=== PATIENT | female | born 1985 | race Hispanic/Latino ===

== ENCOUNTER 2021-09-04 08:41 | Outpatient (CLI) | payer BC ==
[2021-09-04 09:38] LABS: Hemoglobin 12.4 g/dL (12.0-15.5); Mean Corpuscular HGB CONC 31.9 g/dL (32.0-36.0); Mean Corpuscular Hemoglobin 31.5 pg (27.0-33.0); Mean Corpuscular Volume 98.7 fl (81.6-98.3); Mean Platelet Volume 10.3 fl (7.4-10.4); Platelet Count 215 10x3/uL (150-450); RBC Distribution Width 12.8 % (11.5-14.5); Red Blood Cell (RBC) Count 3.94 10x6/uL (3.90-5.03); White Blood Cell (WBC) Count 4.2 10x3/uL (3.5-10.5)
[2021-09-04 09:57] LABS: PTT 27.9 sec (22.0-33.0); Prothrombin Time 10.8 sec (9.5-12.1)
[2021-09-04 10:01] LABS: Anion Gap 10 mmol/L (10-20); BUN (Urea Nitrogen) 12 mg/dL (7.0-18.7); Calc. Creatinine Clearance 0 mL/min (70-130); Calcium 10.3 mg/dL (7.8-10.44); Carbon Dioxide 30 mmol/L (22-29); Chloride 105 mmol/L (98-107); Estimated GFR 95; Glucose 77 mg/dL (70-105); Potassium 4.8 mmol/L (3.5-5.1); Sodium 140 mmol/L (136-145)
== END 2021-09-04 08:42 | disposition home or self-care (01) ==
LOC: LABBT 08:41
PROVIDERS: ATTEND Surgery
DX: Z01.818 Encounter for other preprocedural examination (principal); M51.16 Intervertebral disc disorders with radiculopathy, lumbar region; Z20.822 Contact with and (suspected) exposure to COVID-19
CPT/HCPCS: 80048; 85027; 85610; 85730; 87811; 93005; 93010

== ENCOUNTER 2021-09-09 05:27 | Observation (INO) | payer BC ==
[2021-09-09] MEDS ORDERED: HYDROmorphone 2 MG/ML VIAL ONE (06:21)
[2021-09-09] MEDS ORDERED: fentaNYL Citrate/PF 100 MCG/2 ML SYRINGE ONE (06:21)
[2021-09-09] MEDS ORDERED: Thrombin 5000 UNITS/5 ML VIAL ONE (06:36)
[2021-09-09] MEDS ORDERED: CEFAZOLIN 2 GM VIAL ONE (07:19)
[2021-09-09] MEDS ORDERED: Sodium Chloride 0.9% 100 ML ONE (07:19)
[2021-09-09] MEDS ORDERED: Midazolam HCl 2 mg/2 ml Vial ONE (07:23)
[2021-09-09] MEDS ORDERED: Phenylephrine 10 MG/ML VIAL ONE (07:37)
[2021-09-09] MEDS ORDERED: Dexamethasone 20 MG/5 ML VIAL ONE (07:37)
[2021-09-09] MEDS ORDERED: ePHEDrine 50 MG/ML VIAL ONE (07:37)
[2021-09-09] MEDS ORDERED: Metoclopramide HCl 10 MG/2 ML VIAL ONE (07:37)
[2021-09-09] MEDS ORDERED: Glycopyrrolate 0.2 MG/ML 5 ML SYRINGE ONE (07:37)
[2021-09-09] MEDS ORDERED: Rocuronium Bromide 10 MG/ML (10ML VIAL) ONE (07:37)
[2021-09-09] MEDS ORDERED: PROPOFOL 200 MG/20 ML VIAL ONE (07:37)
[2021-09-09] MEDS ORDERED: Lidocaine 1% PF 5 ML VIAL ONE (07:37)
[2021-09-09] MEDS ORDERED: Ondansetron PF 4 MG/2 ML Vial ONE (07:37)
[2021-09-09] MEDS ORDERED: SUGAMMADEX SODIUM 200 MG/2 ML VIAL ONE (09:07)
[2021-09-09] MEDS ORDERED: traMADol HCl 50 MG TAB PO PRN (09:08)
[2021-09-09] MEDS ORDERED: Morphine 2 MG/ML VIAL SLOW IVP PRN (09:08)
[2021-09-09] MEDS ORDERED: Acetaminophen 325 MG TAB PO PRN (09:08)
[2021-09-09] MEDS ORDERED: HYDROcodone/Acetaminophen 7.5/325 mg Tablet PO PRN (09:08)
[2021-09-09] MEDS ORDERED: Acetaminophen/Codeine 30-300mg Tablet PO PRN (09:08)
[2021-09-09] MEDS ORDERED: ceFAZolin 2 GM/Dextrose 50 ML 2 GM in Premix Bag 1 BAG IVPB SCH (09:15)
[2021-09-09] MEDS ORDERED: HYDROmorphone 2 MG/ML VIAL SLOW IVP PRN (09:25)
[2021-09-09] MEDS ORDERED: Promethazine HCl 25 MG/ML VIAL IM PRN (09:25)
[2021-09-09] MEDS ORDERED: Ondansetron HCl/PF 4 MG/2 ML Vial IVP PRN (09:25)
[2021-09-09] MEDS ORDERED: Promethazine HCl 25 MG/ML VIAL IVPB PRN (09:25)
[2021-09-09] MEDS ORDERED: Meperidine HCl/PF 25 MG/ML VIAL SLOW IVP PRN (09:25)
[2021-09-09] MEDS ORDERED: Cyclobenzaprine 10 MG TAB PO PRN (09:37)
[2021-09-09] MEDS ORDERED: Fentanyl 100 MCG/2 ML VIAL ONE ×2 (09:53→11:12)
[2021-09-09] MEDS: Sodium Chloride 0.9% 1,000 ML IV SCH ×2 (12:39→22:16)
[2021-09-09 12:47] VITALS: BMI 22.9
[2021-09-09] MEDS: CEFAZOLIN 2 GM in Sodium Chloride 0.9% 100 ML IVPB SCH ×2 (15:25→23:01)
[2021-09-09] MEDS: Pregabalin 50 MG CAP PO SCH (20:10)
[2021-09-10 00:23] VITALS: TEMP 98.7
[2021-09-10] MEDS: Pregabalin 50 MG CAP PO SCH (08:05)
[2021-09-10 08:13] VITALS: BP 107/65
[2021-09-10] MEDS ORDERED: DULoxetine 60 MG CAP PO SCH (09:00)
[2021-09-10] MEDS ORDERED: CeleCOXIB 100 MG CAP PO SCH (09:00)
== END 2021-09-10 09:55 | disposition home or self-care (01) ==
LOC: SDC 05:27 → T4-A 09:08
PROVIDERS: ADMIT Surgery; ATTEND Surgery
PROC: 0SB40ZZ Excision of Lumbosacral Disc, Open Approach (ICD-10-PCS; principal; 2021-09-09)
DX: M51.17 Intervertebral disc disorders with radiculopathy, lumbosacral region (principal); Z79.899 Other long term (current) drug therapy
CPT/HCPCS: 76000; 96365; G0378; J0690; J1100; J1170; J2250; J2370; J2405; J2704; J2710; J2765; J3010; J3370; J3490; J7050